=== PATIENT | female | born 2000 | race Caucasian/White ===

== ENCOUNTER → 2022-08-19 10:14 | Outpatient (BNVA) | payer OTHER, MEDICAID, SELFPAY | PROVIDERS: Visit Provider Internal Medicine Rheumatology | DX: O99.891 Other specified diseases and conditions complicating pregnancy (principal); M25.551 Pain in right hip; M25.552 Pain in left hip; M25.561 Pain in right knee; M25.562 Pain in left knee; M79.7 Fibromyalgia; Z3A.00 Weeks of gestation of pregnancy not specified | CPT/HCPCS: 36415; 85652; 86038; 86039; 86140; 86200; 99202 ==

== ENCOUNTER 2022-08-19 11:30 | Outpatient (REF) | payer MEDICARE, MEDICAID, SELFPAY ==
[2022-08-19 14:35] LABS: Erythrocyte Sedimentation Rate 48 MM/HR (0-20)
[2022-08-21 13:23] LABS: Anti Nuclear Antibody Screen NEGATIVE (NEGATIVE)
[2022-08-21 17:21] LABS: Cyclic Citrullinated Peptide <16 UNITS
== END 2022-08-19 11:31 | disposition home or self-care (01) ==
LOC: HO.10HDL 11:30
PROVIDERS: Visit Provider Internal Medicine Rheumatology
DX: Z13.89 Encounter for screening for other disorder (principal)
CPT/HCPCS: 36415; 85652; 86038; 86039; 86140; 86200